=== PATIENT | female | born 1975 | race Caucasian/White ===

== ENCOUNTER 2017-05-21 14:33 | Inpatient (IN) | payer BC ==
[2017-05-21] VITALS (10 sets, daily range): BP systolic 120–162; BP diastolic 67–85
[~2017-05-21] VITALS: Ht 167.6 cm; Wt 76.2 kg
--- NOTE | ~2017-05-21 | PR ---
[place], [place] PROGRESS NOTE NAME: GAEL BOWLES [facility] #: [id number] UNIT #: [id number] ROOM: 520 DOCTOR: REBECCA NGUYEN MD BIRTHDATE: [birth year] DOS: SUBJECTIVE: The patient has no complaints today. OBJECTIVE: VITAL SIGNS: Graphic trend shows blood pressure 102/63, pulse of 72, respirations 20, temperature 98. LUNGS: Clear. HEART: Regular. ABDOMEN: Soft. EXTREMITIES: Without any edema. LABORATORY DATA: WBC count is 7.5, hemoglobin 9.2, hematocrit 32.1. BMP: Glucose 101, BUN 12, creatinine 0.79. Electrolytes normal. MRSA nares was negative. CT of the abdomen and pelvis shows a fibroid with a 4 cm left adnexal cyst and diverticulosis and a benign cyst in the liver. ASSESSMENT AND PLAN: 1. Precipitous drop in hematocrit, treated with iron infusion and blood transfusion and the count has improved and stable. 2. Dysfunctional uterine bleed from a fibroid uterus. The patient to follow up with [facility]. 3. Adnexal cyst. The patient needs to again see CRUISE DIRECTOR to see whether there is an ovarian cyst and whether anything needs to be done for that. 4. Excessive use of Motrin, resulting in heme positive stools. Discussed with Dr. Warren. The patient to see him as an outpatient. No plans for colonoscopy during this admission. REBECCA NGUYEN MD CM:PNTRANS [id number] REBECCA NGUYEN MD 05/23/17 1604 interface
--- NOTE | ~2017-05-21 | CON ---
[place], [place] REPORT OF CONSULTATION [id number] UNIT #: [id number] ROOM: [facility] DOCTOR: RADHA WARREN MD BIRTHDATE: [birth year] DOS: 05/21/2017 GASTROENDOSCOPIC CONSULTATION HISTORY OF PRESENT ILLNESS: This is a 41-year-old patient, who presented after her blood count was found to have hemoglobin of about 5, came to the Emergency Room for definitive admission. She has been experiencing tiredness and shortness of breath and she has a guaiac positivity in the Emergency Room and she has been taking up to 3 ibuprofen daily for cephalalgia. PAST MEDICAL HISTORY: Essentially unremarkable except cephalalgia. PAST SURGICAL HISTORY: Minor surgery lump from tailbone. ALLERGIES: No known medications. SOCIAL HISTORY: Smoker of three cigarette sticks per day and social alcohol consumer on weekends. FAMILY HISTORY: Noncontributory. REVIEW OF SYSTEMS: HEENT: Denies double vision, blurred vision. RESPIRATORY: Admits some shortness of breath. CARDIOVASCULAR: Denies chest pain. DIGESTIVE SYSTEM: No hematemesis, no hematochezia, no dyspepsia. She has not noticed black tarry stool. PHYSICAL EXAMINATION: GENERAL: Reveals nontoxic, comfortable patient. No tachycardia, no compromise on physical exam. HEENT: Head normocephalic, nontraumatic. Mouth and buccal mucosa are benign. Conjunctivae pink. NECK: Supple, no thyromegaly, no cervical lymphadenopathy. CHEST: Symmetric anatomy, equal expansion bilaterally. No wheeze, no rhonchi. HEART: Normal sinus rhythm, no gallop, no murmur. ABDOMEN: Soft. No hepato-organomegaly. Bowel sounds present. EXTREMITIES: No cyanosis, no pedal edema. NEUROLOGIC: Alert, oriented to time, place, person. LABORATORY DATA: Reviewed, records reviewed. H and H of 5 and 29. Microcytic indices, platelet of 441. All has been recognized. Comprehensive metabolic panel, GFR greater than 60. Lipid panel, normal. LFTs normal. Chest x-ray normal PA and lateral. INR 1.0. All has been recognized. IMPRESSION: Multifactorial anemia. She has irregular menses and she could be bleeding up to 20 days per month with metromenorrhagia. She has been guaiac positive, contribution for ibuprofen has to be addressed. Profound anemia, at the present time is going to be transfused and corrected. She is going to be placed on Protonix 40 mg daily and she is going to have another H and H [place], [place] REPORT OF CONSULTATION NAME: GAEL BOWLES UNIT #: [id number] ROOM: [facility] DOCTOR: CHRISTINE KABA,RADHA BIRTHDATE: [address] Warren is going to get a call with H and H at 9:00 a.m. Diet, at the present time, I am going to go clear liquid till tomorrow morning to see what the reassessment is going to be and eventually she may end up to need a EGD after other issues are addressed. Other adjunctive diagnosis, cephalalgia, ruling out migraine cephalalgia and etiologies to be sorted out. RADHA WARREN MD CM:CONSTR:REPORT OF CONSULTATION 1611 05/22/17 0207 interface
--- NOTE | ~2017-05-21 | WRIGHTHP ---
[place], [place] PATIENT HISTORY AND PHYSICAL EXAM NAME: GAEL BOWLES [facility] #: [id number] UNIT #: [id number] ROOM: [facility] DOCTOR: REBECCA NGUYEN MD BIRTHDATE: [birth year] DOS: 05/21/2017 HISTORY OF PRESENT ILLNESS: The patient is 41 years old. The patient states that for the last few weeks, she has been increasingly short of breath, had headaches and was extremely tired and so decided to go see Dr. Britt who had routine blood work ordered, which was abnormal and the patient was asked to come down to the Emergency Room. She denies having any chest pains, palpitations, does not have any fever or chills, does not have any nausea, any emesis. Does not have any blood in her stools or black stools. She has been taking 3 Motrin in the morning and sometimes 3 Motrin in the afternoon for headaches. She also has very heavy menstrual periods for the last couple of years. She has talked to the gyne about it, nothing was done about it. She used to take iron supplements, but quit taking them a couple of years ago and has not had any blood work for a while. PAST MEDICAL HISTORY: Significant for chronic iron deficiency anemia. MEDICATIONS: She is on the Motrin p.r.n. SOCIAL HISTORY: Nonsmoker. She does drink socially; sometimes on the weekend, she drinks 5 beers on Wednesday. She is , does not have any children. FAMILY HISTORY: Significant for father of glioblastoma. Mother is healthy. She has one sister who is also healthy. PHYSICAL EXAMINATION: GENERAL: She is awake and alert and oriented. VITAL SIGNS: Graphic trend shows a pressure of 118/79, pulse of 88, respirations 14, temperature 97.0. LUNGS: Diminished breath sounds. No wheezes, rales or rhonchi heard. HEART: Regular. ABDOMEN: Soft. EXTREMITIES: Without any edema. ASSESSMENT AND PLAN: 1. Anemia, precipitous drop in hematocrit with history of iron deficiency anemia. Iron level somehow was missed but the ferritin extremely low. She will be started on iron supplements IV. P.o. supplements will be held for right now. 2. The patient with increased intake of Motrin, has heme positive stools as per the Emergency Room. So, Dr. Warren has been consulted. The patient is encouraged to stop using alcohol also and would undergo colonoscopy on Wednesday. 3. Dysfunctional uterine bleed, may require a D and C. I will go ahead and arrange for a CT of the pelvis this morning. [place], [place] PATIENT HISTORY AND PHYSICAL EXAM NAME: GAEL BOWLES UNIT #: [id number] ROOM: [facility] DOCTOR: REBECCA NGUYEN MD BIRTHDATE: [birth year] REBECCA NGUYEN MD CM:HISPHYS:PATIENT HISTORY AND PHYSICAL EXAMINATION [id number] REBECCA NGUYEN MD 05/22/17 0945 interface
--- NOTE | ~2017-05-21 | DS ---
[place], [place] DISCHARGE SUMMARY NAME: GAEL BOWLES UNIT #: [id number] ROOM: 520 DOCTOR: REBECCA NGUYEN MD BIRTHDATE: [birth year] DOS: 05/23/2017 DIAGNOSES: 1. Precipitous drop in hematocrit. 2. Dysfunctional uterine bleed. 3. Left adnexal cyst, 4 cm. 4. Fibroid uterus. 5. Benign cyst of the liver. 6. Heme-positive stools from nonsteroidal usage. The patient to see Dr. Warren as an outpatient for endo-colo and also diverticulosis. MEDICATIONS: Only prescription given was Niferex 150 mg daily and Zantac 150 mg daily. HOSPITAL COURSE: This patient is 41-year-old. The patient has been complaining of headaches, shortness of breath, extreme tired feeling, so decided to see her PCP who did routine blood work and was found to be quite anemic. She has history of chronic anemia, has been seeing gynecology for quite a long time. After admission, she was transfused with 3 units. She was found to be significantly iron deficient and was started on iron supplements IV. Dr. Warren was consulted. He was concerned about the Motrin usage. The patient is advised against it. Dr. Warren feels that the patient can go home and have a colonoscopy as an outpatient. Because of the dysfunctional uterine bleed, a CT of the abdomen and pelvis was done, which showed the above-mentioned findings. The patient is encouraged to follow up with gynecology for further suggestions. Labs this morning show basic to be normal. Hemoglobin is 9.2, platelets are 293. She did receive 2 doses of Ferrlecit and she will go home today and can start her on iron supplements and then she will follow up with Dr. Britt as an outpatient for further blood work. [place], [place] DISCHARGE SUMMARY NAME: GAEL BOWLES UNIT #: [id number] ROOM: 520 DOCTOR: REBECCA NGUYEN MD BIRTHDATE: [birth year] REBECCA NGUYEN MD CM:DISCHARG [id number] REBECCA NGUYEN MD 05/23/17 0940 interface
[2017-05-21 15:19] LABS: ACT PARTIAL THROMBO TIME 19.8 SECONDS (20.8-31.5)
[2017-05-21 16:36] LABS: FERRITIN 1.9 ng/mL (10.0-291.0)
[2017-05-22 04:00] VITALS: BP 118/79
[2017-05-22 06:12] LABS: HEMATOCRIT 31.1 % (37.0-47.0)
[2017-05-22 08:00] VITALS: BP 111/67
[2017-05-22 12:00] VITALS: BP 132/81
[2017-05-22 16:00] VITALS: BP 122/83
[2017-05-22 20:00] VITALS: BP 120/70
[2017-05-23] VITALS: BP 102/63
[2017-05-23 06:12] LABS: BASO # 0.1 10*3/uL (0.0-0.1); BASO % 1.3 % (0.0-1.0); EOS # 0.2 10*3/uL (0.0-0.4); EOS % 2.1 % (1.0-4.0); HEMATOCRIT 32.1 % (37.0-47.0); HEMOGLOBIN 9.2 g/dl (12.0-16.0); LYMPH # 1.7 10*3/uL (1.3-4.4); LYMPH % 22.8 % (27.0-41.0); MEAN CORPUSCULAR HGB 19.5 pg (27.0-31.0); MEAN CORPUSCULAR HGB CONC 28.7 g/dl (33.0-37.0); MEAN PLATELET VOLUME 9.6 fl (9.6-12.3); MONO # 0.9 10*3/uL (0.1-1.0); MONO % 11.7 % (3.0-9.0); NEUT # 4.6 10*3/uL (2.3-7.9); NEUT % 61.2 % (47.0-73.0); RED BLOOD COUNT 4.72 10*6/uL (4.10-5.10); RED CELL DISTRI WIDTH 28.5 % (0-14.5); WHITE BLOOD COUNT 7.5 10*3/uL (4.8-10.8)
[2017-05-23 06:18] LABS: PLATELET COUNT AUTOMATED 293 10*3/uL (130-400)
[2017-05-23 06:43] LABS: BUN 12 mg/dl (7-24); CHLORIDE 109 mmol/L (98-107); POTASSIUM 4.2 mmol/L (3.5-5.1); SODIUM 141 mmol/L (136-145)
[2017-05-23 06:45] LABS: CREATININE 0.79 mg/dL (0.55-1.02)
[2017-05-23] MEDS ORDERED: TYLENOL325 M2 PO (07:53)
[2017-05-23] MEDS ORDERED: FERROUS GLUCON324 M2 PO (07:53)
[2017-05-23 08:00] VITALS: BP 113/74
[2017-05-23] MEDS ORDERED: ZANTAC 150150 MG PO (08:33)
== END 2017-05-23 09:50 | disposition home or self-care (01) | DRG 811 ==
LOC: ED 14:33 → EDHOLD 15:15 → ICCU 15:21 → 5E 05-22 14:25
PROVIDERS: Internal Medicine; Nurse Practitioner Family
PROC: 30233N1 Transfusion of Nonautologous Red Blood Cells into Peripheral Vein, Percutaneous Approach (ICD-10-PCS; principal; 2017-05-21)
DX: D62 Acute posthemorrhagic anemia (principal); K57.91 Diverticulosis of intestine, part unspecified, without perforation or abscess with bleeding; N92.1 Excessive and frequent menstruation with irregular cycle; T39.395A Adverse effect of other nonsteroidal anti-inflammatory drugs [NSAID], initial encounter; D25.9 Leiomyoma of uterus, unspecified; N85.8 Other specified noninflammatory disorders of uterus; N93.8 Other specified abnormal uterine and vaginal bleeding; Z84.89 Family history of other specified conditions; Z79.899 Other long term (current) drug therapy; Y92.89 Other specified places as the place of occurrence of the external cause

== ENCOUNTER → 2017-05-21 | Outpatient (CLI) | payer BC ==
[~2017-05-21] MED LIST: FERROUS GLUCON324 M2 PO; TYLENOL325 M2 PO; ZANTAC 150150 MG PO
[2017-05-21 07:42] LABS: HEMATOCRIT 22.9 % (37.0-47.0); MEAN CELL VOLUME 58.4 fl (81.0-99.0); MEAN CORPUSCULAR HGB 14.8 pg (27.0-31.0); MEAN CORPUSCULAR HGB CONC 25.3 g/dl (33.0-37.0); MEAN PLATELET VOLUME 9.5 fl (9.6-12.3); NUCLEATED RED BLOOD CELL 0.3 % (0.0-0.0); RED BLOOD COUNT 3.92 10*6/uL (4.10-5.10); WHITE BLOOD COUNT 7.9 10*3/uL (4.8-10.8)
[2017-05-21 07:56] LABS: ALBUMIN 3.6 gm/dl (3.1-4.5); ALKALINE PHOSPHATASE 85 U/L (45-117); BUN 9 mg/dl (7-24); CHLORIDE 105 mmol/L (98-107); CHOLESTEROL 133 mg/dL (<200); CREATININE 0.76 mg/dL (0.55-1.02); HDL CHOLESTEROL 42 mg/dl (40-60); LDL CHOLESTEROL 73 mg/dL (9-159); SGOT/AST 13 IU/L (3-35); SGPT/ALT 15 U/L (12-78); SODIUM 138 mmol/L (136-145); TOTAL PROTEIN 7.8 gm/dL (6.4-8.2); TRIGLYCERIDES 90 mg/dl (<150); VLDL CHOLESTEROL 18 mg/dL (6-40)
[2017-05-21 08:16] LABS: HEMOGLOBIN 5.8 g/dl (12.0-16.0)
[2017-05-21 09:22] LABS: VITAMIN D, 25-HYDROXY 22.2 ng/mL (30-100)
== END | disposition home or self-care (01) ==
LOC: LAB 07:14
PROVIDERS: Family Medicine
DX: E78.00 Pure hypercholesterolemia, unspecified (principal); D64.9 Anemia, unspecified; E55.9 Vitamin D deficiency, unspecified; R06.02 Shortness of breath; R53.83 Other fatigue

== ENCOUNTER → 2017-06-08 | Outpatient (CLI) | payer BC ==
[2017-06-08 08:16] LABS: HEMATOCRIT 35.4 % (37.0-47.0); HEMOGLOBIN 10.3 g/dl (12.0-16.0); MEAN CORPUSCULAR HGB 22.7 pg (27.0-31.0); MEAN CORPUSCULAR HGB CONC 29.1 g/dl (33.0-37.0); MEAN PLATELET VOLUME 10.2 fl (9.6-12.3); PLATELET COUNT AUTOMATED 490 10*3/uL (130-400); RED BLOOD COUNT 4.54 10*6/uL (4.10-5.10); WHITE BLOOD COUNT 6.5 10*3/uL (4.8-10.8)
[2017-06-08 08:35] LABS: BASOPHILS 1 % (0-1); MICROCYTOSIS SLIGHT; PLATELET SUFFICIENCY HIGH (NORMAL); TOTAL CELLS COUNTED 100 #CELLS
[2017-06-08 08:36] LABS: OVALOCYTES FEW; POLYCHROMASIA SLIGHT
== END | disposition home or self-care (01) ==
LOC: LAB 06:56
PROVIDERS: Family Medicine
DX: D64.9 Anemia, unspecified (principal)

== ENCOUNTER → 2017-07-09 | Outpatient (CLI) | payer BC ==
[2017-07-09 09:12] LABS: HEMATOCRIT 42.7 % (37.0-47.0); HEMOGLOBIN 13.3 g/dl (12.0-16.0); MEAN CELL VOLUME 83.4 fl (81.0-99.0); MEAN CORPUSCULAR HGB CONC 31.1 g/dl (33.0-37.0); PLATELET COUNT AUTOMATED 284 10*3/uL (130-400); RED BLOOD COUNT 5.12 10*6/uL (4.10-5.10); RED CELL DISTRI WIDTH 17.8 % (0-14.5); WHITE BLOOD COUNT 4.3 10*3/uL (4.8-10.8)
== END | disposition home or self-care (01) ==
LOC: LAB 07:24
PROVIDERS: Family Medicine
DX: D64.9 Anemia, unspecified (principal)